=== PATIENT | female | born 1975 ===

== ENCOUNTER 2021-05-07 08:00 | Outpatient (CLI) | payer OTHER ==
[~2021-05-07 08:00] MED LIST: ALLEGRA ALLERG180 MG PO; CARAFATE SU1 G/10 ML; GILTUSS TR TAB1 EACH PO; LEVAQUIN750 MG PO; PNEU16DI2; PROMETHAZINE W118 ML PO; PROTONIX40 MG; PROVENTIL3 ML/2.5 M IH
== END 2021-05-07 08:30 | disposition home or self-care (01) ==
LOC: PPH VACUNA 08:00
PROVIDERS: ATTEND Emergency Medicine Pediatric Emergency Medicine
DX: Z23 Encounter for immunization (principal)